=== PATIENT | male | born 1950 | race Caucasian/White ===

== ENCOUNTER → 2020-01-22 | Outpatient (CLI) | payer OTHER ==
[~2020-01-22] MED LIST: METFORMIN1000 MG PO; ZOCOR80 MG PO
[2020-01-22 11:05] LABS: BUN 15 mg/dl (7-24); CHLORIDE 102 mmol/L (98-107); CREATININE 0.68 mg/dL (0.70-1.30); POTASSIUM 3.4 mmol/L (3.5-5.1); SODIUM 140 mmol/L (136-145)
== END | disposition home or self-care (01) ==
LOC: LAB 10:12
PROVIDERS: Nurse Practitioner Family
DX: E87.6 Hypokalemia (principal)